=== PATIENT | male | born 1995 | race African-American/Black ===

== ENCOUNTER 2017-11-29 11:53 | Emergency (ER) | payer OTHER ==
[~2017-11-29] VITALS: Ht 170.2 cm; Wt 67.3 kg
[~2017-11-29 11:53] MED LIST: LYRICA75 MG; MELATONIN5 M2; RISPERDAL1 MG; ZONEGRAN100 M1
[2017-11-29 12:31] LABS: BASOPHIL (%) 0.3 % (0-1); EOSINOPHIL (%) 0 % (0-5); HEMATOCRIT 42.2 % (38.0-50.0); HEMOGLOBIN 13.7 G/DL (12.5-16.6); LYMPHOCYTE (%) 12.4 % (15-42); LYMPHOCYTE COUNT 1.3 K/uL (1.0-2.8); MCH 26.5 PG (29.0-34.0); MCHC 32.5 G/DL (30.0-36.0); MCV 81.6 FL (86-99); MONOCYTE (%) 7.7 % (3-12); MONOCYTE COUNT 0.8 K/uL (0-0.8); NEUTROPHIL (%) 78.6 % (45-76); NEUTROPHIL COUNT 8.5 K/uL (1.8-6.4); PLATELET COUNT 329 K/uL (156-360); RBC DIS.WIDTH-CV 10.9 % (11.8-14.6); RED BLOOD COUNT 5.17 M/uL (4.00-5.50); WHITE BLOOD COUNT 10.8 K/uL (4.1-10.2)
[2017-11-29 12:41] LABS: CHLORIDE 103 mEq/L (99-109); POTASSIUM 3.6 mEq/L (3.7-5.4); SODIUM 139 mEq/L (136-147)
[2017-11-29 12:43] LABS: GLUCOSE 132 mg/dL (70-99)
[2017-11-29 12:47] LABS: CREATININE 0.9 mg/dL (0.6-1.3); GFR ESTIMATE (CALCULATED) > 59 mL/min/ (58.99-99999)
[2017-11-29 12:48] LABS: UREA NITROGEN (BUN) 8 mg/dL (9-23)
[2017-11-29] MEDS ORDERED: ATIVAN1 MG PO (16:25)
[2017-11-29 16:53] VITALS: BP 135/59
== END 2017-11-29 17:28 | disposition home or self-care (01) ==
LOC: EME 11:53
PROVIDERS: Emergency Medicine
DX: R56.9 Unspecified convulsions (principal); F84.0 Autistic disorder
CPT/HCPCS: 80048; 85025; 99281; 99284; J2060; J7030